=== PATIENT | male | born 1980 | race African-American/Black ===

== ENCOUNTER 2019-06-09 10:29 | Emergency (ER) | payer SELFPAY ==
[~2019-06-09] VITALS: Ht 193 cm; Wt 81.8 kg
[2019-06-09 10:31] VITALS: Ht 193 cm; Wt 81.8 kg
[2019-06-09] MEDS ORDERED: VOLTAREN75 MG PO (10:53)
[2019-06-09] MEDS ORDERED: CYCLOBENZAPRINE10 MG PO (10:53)
[2019-06-09 13:03] VITALS: BP 110/63
== END 2019-06-09 13:04 | disposition home or self-care (01) ==
LOC: D.ER 10:29
DX: M54.5 Low back pain (principal); M62.830 Muscle spasm of back